=== PATIENT | female | born 1975 | race Two or more races ===

== ENCOUNTER 2021-04-26 08:09 | Outpatient (CLI) | payer OTHER | END 2021-04-26 08:13 | disposition home or self-care (01) | LOC: PPH VACUNA 08:09 | PROVIDERS: ATTEND Emergency Medicine Pediatric Emergency Medicine | DX: Z23 Encounter for immunization (principal) ==

== ENCOUNTER 2022-08-13 09:10 | Outpatient (CLI) | payer OTHER | END 2022-08-13 09:11 | disposition home or self-care (01) | LOC: RAD 09:10 | PROVIDERS: ATTEND Orthopaedic Surgery | DX: M25.561 Pain in right knee (principal); M25.562 Pain in left knee ==